=== PATIENT | female | born 1990 | race Caucasian/White ===

== ENCOUNTER 2018-01-18 09:12 | Inpatient (IN) | payer BC ==
[2018-01-18 09:40] VITALS: BMI 23.3
[2018-01-18] MEDS ORDERED: Butorphanol Tartrate 1 MG/ML VIAL SLOW IVP PRN (10:00)
[2018-01-18] MEDS ORDERED: NS w/ Oxytocin 10 units 500 ML IV SCH (10:00)
[2018-01-18] MEDS ORDERED: Ondansetron PF 4 MG/2 ML Vial IVP PRN ×3 (10:00→23:21)
[2018-01-18] MEDS ORDERED: Promethazine HCl 25 MG/ML VIAL IM PRN ×3 (10:00→23:21)
[2018-01-18] MEDS ORDERED: Ibuprofen 800 MG TAB PO PRN (10:00)
[2018-01-18] MEDS ORDERED: Methylergonovine 0.2 MG/ML VIAL IM PRN (10:00)
[2018-01-18] MEDS ORDERED: Lidocaine 1% (PF) 30 ML VIAL SC PRN (10:00)
[2018-01-18] MEDS ORDERED: HYDROcodone/Acetaminophen 5/325 mg Tablet PO PRN ×4 (10:00→23:21)
--- NOTE | 2018-01-18 10:09 | PDOC.LDHP ---
Labor and Delivery H&P Chief complaint: contractions HPI: Ashly is a at 40 weeks gestation. She had some contractions all night, but starting at 6 this morning, the contractions started getting closer together , every 3 mins and she was unable to talk through her them. Current gestational age (weeks): 40 Due date: 01/18/18 Grav: 1 Para: 0 Current complications: none Current medications: pre-areli vitamins Previous surgical history: none Allergies/Adverse Reactions: Allergies Allergy/AdvReac Type Severity Reaction Status Date / Time doxycycline Allergy Verified 01/18/18 09:43 Social history: none - Physical Exam Vital signs reviewed and normal: yes General: breathing through contractions Heart: RRR Lungs: nonlabored breathing Abdomen: gravid FHT: category 1 - Vaginal Exam cm dilated: 4 Effacement: 75% Station: 0 - OB Labs Blood type: A RH: positive Antibody Screen: negative HIV: negative RPR: negative HEPSAg: negative 1 hour GCT: negative GBS: negative Urine drug screen: not done Rubella: immune - Assessment L&D Assessment: term patient in labor - Plan Plan: admit to L&D
[2018-01-18] MEDS: Lactated Ringer's 1,000 ML IV SCH ×2 (10:25→11:38)
[2018-01-18] MEDS ORDERED: Fentanyl 4 mcg/Bup 0.1% Cadd 100 ML ONE (10:53)
[2018-01-18 10:55] LABS: Mean Corpuscular HGB CONC 34.9 g/dL (32.0-36.0); Mean Corpuscular Hemoglobin 32.5 pg (27.0-31.0); Mean Corpuscular Volume 93.3 fL (78.0-98.0); Platelet Count 194 thou/uL (130-400); Red Blood Cell (RBC) Count 4.32 mill/uL (4.20-5.40); White Blood Cell (WBC) Count 14.4 thou/uL (4.8-10.8)
[2018-01-18] MEDS ORDERED: Bupivacaine/Epinephrine 0.25% 30 ML VIAL ONE (11:11)
[2018-01-18] MEDS ORDERED: Bupivacaine PF 0.5% 30 ML VIAL ONE (11:11)
[2018-01-18] MEDS ORDERED: Bupivacaine 0.25% HCL 30 ML VIAL ONE (11:11)
[2018-01-18] MEDS ORDERED: Fentanyl 100 MCG/2 ML VIAL ONE (11:12)
[2018-01-18 11:36] LABS: Hep B Surf Ag Non-Reactive S/CO (NonReactive)
[2018-01-18 11:37] LABS: Syphilis Antibody Nonreactive (Nonreactive); Syphilis Antibody Index 0.05 S/CO (<1.00 Non-Reactive)
[2018-01-18] MEDS ORDERED: Acetaminophen 325 MG TAB PO PRN (12:26)
[2018-01-18] MEDS ORDERED: Naloxone HCl 0.4 mg/ml Vial IVP PRN ×2 (12:26)
[2018-01-18] MEDS ORDERED: Lactated Ringer's 500 ML IV PRN (12:26)
[2018-01-18] MEDS ORDERED: diphenhydrAMINE 50 MG/ML VIAL IVP PRN (12:26)
[2018-01-18] MEDS ORDERED: ePHEDrine/0.9% NaCl/PF SYRINGE 50 mg/10 ml SLOW IVP PRN (12:26)
[2018-01-18] MEDS ORDERED: Eucerin (Mineral Oil/Petrolatum,White) 30 gm Jar TOP PRN (12:26)
[2018-01-18] MEDS ORDERED: Communication Order-Pharmacy FS SCH (12:30)
[2018-01-18] MEDS ORDERED: Fentanyl 4 mcg/Bupivacaine 0.1% Cassette 100 ML EPIDURAL SCH (12:30)
--- NOTE | 2018-01-18 18:35 | PDOC.OPDEL ---
OB Operative/Delivery Note Delivery Dr/Surgeon: Eric Pre-Delivery Diagnosis: active labor Procedure/Post Delivery Dx: spontaneous vaginal delivery Weeks gestation: 40 Anesthesia: epidural - Findings A Sex: male Weight: 8 lb 11 oz - Additional Findings/Plan Placenta delivered: spontaneous Repaired Obstetrical Laceration: 1st degree Estimated blood loss: 100ml Post delivery plan: routine recovery
[2018-01-18] MEDS: NS / Oxytocin 40 units/1000ml 1,000 ML IV PRN ×2 (18:47→19:54)
[2018-01-18] MEDS ORDERED: NS / Oxytocin 40 units/1000ml 1,000 ML IV SCH (23:21)
[2018-01-18] MEDS ORDERED: Bisacodyl 10 MG SUPP PR PRN (23:21)
[2018-01-18] MEDS ORDERED: diphenhydrAMINE 25 MG CAP PO PRN (23:21)
[2018-01-18] MEDS ORDERED: Lanolin Ointment 7 GM TUBE TOP PRN (23:21)
[2018-01-18] MEDS ORDERED: Benzocaine/Menthol 20-0.5% 60 ML CAN TOP PRN (23:21)
[2018-01-18] MEDS ORDERED: Preparation H Ointment 28 GM TUBE PR PRN (23:21)
[2018-01-18] MEDS ORDERED: Ibuprofen 800 MG TAB PO SCH (23:30)
[2018-01-18] MEDS ORDERED: Docusate Calcium (SURFAK) 240 MG CAP PO SCH (23:30)
[2018-01-19] MEDS: Ibuprofen 800 MG TAB PO SCH ×3 (06:41→21:05)
--- NOTE | 2018-01-19 08:20 | PDOC.PP ---
Post Progress Note Post Day #: 1 Subjective: doing well, nursing well, lochia normal PO intake tolerated: yes Flatus: yes Ambulation: yes Vital Signs (12 hours) Temp Pulse Resp BP Pulse Ox 01/19/18 08:00 97.7 F 63 20 122/75 99 01/19/18 04:05 98.0 F 73 18 114/60 01/18/18 23:07 98.2 F 85 18 136/81 98 Weight Weight 149 lb - Physical Examination General: NAD Respiratory: non-labored breathing Fundus firm & at: below umb Skin: no rash Psychiatric: normal affect Result Diagrams: 01/18/18 10:41 Additional Labs: Post Labs Blood Type A POSITIVE 01/18/18 10:41 Hep Bs Antigen Non-Reactive S/CO (NonReactive) 01/18/18 10:41 (1) 40 weeks gestation of Code(s): Z3A.40 - 40 WEEKS GESTATION OF Status: Acute (2) Vaginal delivery Code(s): O80 - ENCOUNTER FOR FULL-TERM UNCOMPLICATED DELIVERY Status: Acute - Assessment/Plan PPD1 doing well, likely DC tomorrow.
[2018-01-19] MEDS ORDERED: Adacel (T-DAP) 0.5 ML VIAL IM ONE (09:00)
[2018-01-19] MEDS: Docusate Calcium (SURFAK) 240 MG CAP PO SCH ×2 (10:21→21:09)
[2018-01-19] MEDS: Prenatal Vitamin 1 TAB PO SCH (10:21)
[2018-01-19] MEDS: Ferrous Sulfate 325 MG TAB PO SCH ×2 (10:21→15:36)
[2018-01-19] MEDS: Milk Of Magnesia 30 ML UDCUP PO PRN (17:55)
[2018-01-20] MEDS: Ibuprofen 800 MG TAB PO SCH (05:07)
[2018-01-20 07:55] VITALS: BP 114/60; TEMP 98.3
--- NOTE | 2018-01-20 08:00 | PDOC.PP ---
Post Progress Note Post Day #: 2 Subjective: doing well, min lochia, breast feeding well PO intake tolerated: yes Flatus: yes Ambulation: yes Vital Signs (12 hours) Temp Pulse Resp BP Pulse Ox 01/20/18 07:54 98.3 F 70 20 114/60 96 01/19/18 21:00 99 01/19/18 20:15 97.9 F 80 20 140/80 99 Weight Weight 149 lb - Physical Examination General: NAD Respiratory: non-labored breathing Abdominal: no distention Fundus firm & at: below umb Skin: no rash Neurological: no gross focal deficits Psychiatric: A&Ox3, normal affect Result Diagrams: 01/18/18 10:41 Additional Labs: Post Labs Blood Type A POSITIVE 01/18/18 10:41 Hep Bs Antigen Non-Reactive S/CO (NonReactive) 01/18/18 10:41 (1) 40 weeks gestation of Code(s): Z3A.40 - 40 WEEKS GESTATION OF Status: Acute (2) Vaginal delivery Code(s): O80 - ENCOUNTER FOR FULL-TERM UNCOMPLICATED DELIVERY Status: Acute - Assessment/Plan PPD2, doing well, plan for DC home today.
[2018-01-20] MEDS: Ferrous Sulfate 325 MG TAB PO SCH (08:27)
[2018-01-20] MEDS: Docusate Calcium (SURFAK) 240 MG CAP PO SCH (08:28)
[2018-01-20] MEDS: Milk Of Magnesia 30 ML UDCUP PO PRN (08:28)
[2018-01-20] MEDS: Prenatal Vitamin 1 TAB PO SCH (08:28)
== END 2018-01-20 11:45 | disposition home or self-care (01) | DRG 807 ==
LOC: L&D/OP 09:12 → L&D 16:31 → 3SE 23:19 → 3SW 01-19 08:18
PROVIDERS: ADMIT Obstetrics & Gynecology; ATTEND Obstetrics & Gynecology
PROC: 10E0XZZ Delivery of Products of Conception, External Approach (ICD-10-PCS; principal; 2018-01-18)
PROC: 10907ZC Drainage of Amniotic Fluid, Therapeutic from Products of Conception, Via Natural or Artificial Opening (ICD-10-PCS; 2018-01-18)
PROC: 0HQ9XZZ Repair Perineum Skin, External Approach (ICD-10-PCS; 2018-01-18)
DX: O70.0 First degree perineal laceration during delivery (principal); Z37.0 Single live birth; Z3A.40 40 weeks gestation of pregnancy; O76 Abnormality in fetal heart rate and rhythm complicating labor and delivery
CPT/HCPCS: 36415; 51702; 85027; 86780; 86850; 86900; 86901; 87340; 99285; J2001; J2405; J3010; S0020